=== PATIENT | female | born 1995 | race American Indian/Alaskan Native ===

== ENCOUNTER 2017-06-12 21:48 | Emergency (ER) | payer MEDICAID ==
[2017-06-12 22:19] VITALS: BP 120/59
[2017-06-12 22:48] LABS: Bacteria,Urine 4+ /HPF (Negative); Bilirubin,Urine NEG (Negative); Blood,Urine NEG (Negative); Calcium Oxalate Crystals,Urine 1+; Color,Urine Yellow (Yellow); Mucus,Urine 2+ /HPF; Protein,Urine <15 mg/dL mg/dL (Negative)
[2017-06-12 22:49] LABS: HCG Qualitative,Urine Negative (Negative)
--- NOTE | 2017-06-12 23:43 | XRay Report ---
FINAL REPORT EXAM: XR SPINE LUMBOSACRAL 2-3V HISTORY: lower back pain TECHNIQUE: Lumbar spine 3 views PRIORS: None. FINDINGS: Vertebral bodies demonstrate normal height and alignment. The disc spaces are within normal limits. There is no evidence of spondylolisthesis. Transverse and spinous processes are intact SI joints are unremarkable. IMPRESSION: Negative lumbar spine series
== END 2017-06-13 02:06 | disposition left against medical advice (07) ==
LOC: ED 21:48
DX: M54.9 Dorsalgia, unspecified (principal); Z53.21 Procedure and treatment not carried out due to patient leaving prior to being seen by health care provider
CPT/HCPCS: 72100; 81001; 81025

== ENCOUNTER 2018-03-23 12:24 | Emergency (ER) | payer MEDICAID ==
[2018-03-23 12:32] VITALS: BP 115/72
[2018-03-23] MEDS ORDERED: ZOFRAN ODT PO ONE (13:12)
--- NOTE | 2018-03-23 13:14 | Emergency Department Report ---
Vomiting/Diarrhea - HPI Chief Complaint: Abdominal Pain Stated Complaint: ABD PAIN/VOMITING Time Seen by Provider: 03/23/18 13:04 Duration: 1 week Severity: mild Nausea/Vomiting Severity: Mild Diarrhea Severity: None Pain Severity: None Symptoms: Yes Able to Tolerate Fluids, No Watery Diarrhea, No Bloody diarrhea, No Fever, No Recent Unusual Foods, No Recent Untreated Water, No Recent use of Antibiotics, No Family w/ Similar Symptoms, No Contacts w/ Similar Symptoms, No Rash, No Hematuria, No Recent URI Symptoms Other History: This is an 22-year-old [place] female who presents with nausea and vomiting for one week. Last cycle 01/25/2008, A0. Patient states she had mild pelvic cramping this morning which is now resolved. States she can keep liquids down. She is only vomiting after meals. She denies vaginal bleeding, frequency, urgency, dysuria, diarrhea, or vaginal discharge. ED Review of Systems ROS: Stated complaint: ABD PAIN/VOMITING Other details as noted in HPI Constitutional: denies: chills, fever Respiratory: denies: cough, shortness of breath, wheezing Cardiovascular: denies: chest pain, palpitations Gastrointestinal: nausea, vomiting. denies: abdominal pain, diarrhea Neurological: denies: headache, weakness, paresthesias Psychiatric: denies: anxiety, depression ED Past Medical Hx - Past Medical History Previous Medical History?: No - Surgical History Past Surgical History?: Yes Additional Surgical History: x1 - Social History Smoking Status: Never Smoker Substance Use Type: None - Medications Home Medications: Home Medications Medication Instructions Recorded Confirmed Last Taken Type Azithromycin [Zithromax TAB] 500 mg PO QDAY #4 tablet 10/27/14 Unknown Rx Nitrofurantoin Dickens/M-Cryst 100 mg PO Q12HR #14 capsule 10/27/14 Unknown Rx [Macrobid CAP] Phenazopyridine [Pyridium] 200 mg PO TID #6 tab 10/27/14 Unknown Rx Nitrofurantoin Monohyd/M-Cryst 100 mg PO BID #10 capsule 03/23/18 Unknown Rx [Macrobid 100 mg Capsule] Ondansetron [Zofran Odt] 4 mg PO Q8HR PRN #20 tab.rapdis 03/23/18 Unknown Rx 21/Iron Fu/Folic Acid 1 each PO DAILY #30 tablet 03/23/18 Unknown Rx [ Complete Caplet] Vomiting Diarrhea Exam - Exam General: Vital signs noted. No distress. Alert and acting appropriately. HEENT: Yes Pharyngeal Erythema (erythematous posterior pharynx, uvula midline), Yes Moist Mucous Membranes, No Pharyngeal Exudates, No Rhinorrhea, No Conjuctival Injection, No Frontal Tenderness, No Maxillary Tenderness Neck: No Adenopathy, No Rigidity Lungs: Yes Clear Lung Sounds, Yes Good Air Exchange, No Wheezes, No Stridor, No Cough, No Nasal Flaring, No Retractions, No Use of Accessory Muscles Heart exam: Regular: Yes, Murmur: No, Tachycardia: No Abdomen: Tenderness: No, Peritoneal Signs: No, Distention: No, Hyperactive Bowel sounds: No Skin exam: Rash: No, Edema: No, Normal turgor: Yes Neurologic: Alert and oriented, no deficits. Musculoskeletal: Unremarkable. ED Course Vital Signs 03/23/18 12:30 Temperature 98.2 F Pulse Rate 76 Respiratory 16 Rate Blood Pressure 115/72 O2 Sat by Pulse 100 Oximetry ED Medical Decision Making - Lab Data Lab Results 03/23/18 Range/Units 12:38 Urine Color Yellow (Yellow) Urine Turbidity Slightly-cloudy (Clear) Urine pH 6.0 (5.0-7.0) Ur Specific [place] 1.020 (1.003-1.030) Urine Protein <15 mg/dl (Negative) mg/dL Urine Glucose (UA) Neg (Negative) mg/dL Urine Ketones Tr (Negative) mg/dL Urine Blood Neg (Negative) Urine Nitrite Neg (Negative) Ur Reducing Substances Not Reportable Urine Bilirubin Neg (Negative) Urine Ictotest Not Reportable Urine Urobilinogen 2.0 (<2.0) mg/dL Ur Leukocyte Esterase Mod (Negative) Urine WBC (Auto) 15.0 H (0.0-6.0) /HPF Urine RBC (Auto) 3.0 (0.0-6.0) /HPF U Epithel Cells (Auto) 15.0 H (0-13.0) /HPF Urine Bacteria (Auto) 1+ (Negative) /HPF Urine Mucus 1+ /HPF Urine HCG, Qual Positive A (Negative) - Medical Decision Making Patient was examined by me. Vitals are normal and patient is in no acute distress. Obtained a urinalysis and urine hCG. Confirmed Start complete vitamin po daily x 30 days, 0 refills. Hyperemisis Start zofran ODT 4 mg po tid prn for nausea. Acute cystitis Start Macrobid 100 mg by mouth twice a day 5 days, 0 refills. Patient informed of results. Referral to [facility] for continued care. Patient discharged home in stable condition. Critical care attestation.: If time is entered above; I have spent that time in minutes in the direct care of this critically ill patient, excluding procedure time. ED Disposition Clinical Impression: Nausea and vomiting during , confirmed by positive urine test Acute cystitis during Qualifiers: Trimester: unspecified trimester Qualified Code(s): O23.10 - Infections of bladder in , unspecified trimester Disposition: TO HOME OR SELFCARE Is pt being admited?: No Does the pt Need Aspirin: No Condition: Stable Instructions: Hyperemesis Gravidarum (ED), (ED) Additional Instructions: Take vitamins daily. Complete full course of antibiotics as prescribed. Follow up with [facility]. Prescriptions: Nitrofurantoin Monohyd/M-Cryst [Macrobid 100 mg Capsule] 100 mg PO BID #10 capsule Ondansetron [Zofran Odt] 4 mg PO Q8HR PRN #20 tab.rapdis PRN Reason: Nausea And Vomiting 21/Iron Fu/Folic Acid [ Complete Caplet] 1 each PO DAILY #30 tablet Referrals: [facility] [Provider Group] - 3-5 Days [facility] [Provider Group] - 3-5 Days [facility] [Provider Group] - 3-5 Days Forms: Work/School Release Form(ED) Time of Disposition: 13:52
[2018-03-23 13:21] LABS: HCG Qualitative,Urine Positive (Negative)
[2018-03-23 13:27] LABS: Bacteria,Urine 1+ /HPF (Negative); Bilirubin,Urine NEG (Negative); Blood,Urine NEG (Negative); Color,Urine Yellow (Yellow); Mucus,Urine 1+ /HPF; Protein,Urine <15 mg/dL mg/dL (Negative)
== END 2018-03-23 14:12 | disposition home or self-care (01) ==
LOC: ED 12:24
DX: O26.891 Other specified pregnancy related conditions, first trimester (principal); O23.10 Infections of bladder in pregnancy, unspecified trimester; Z3A.01 Less than 8 weeks gestation of pregnancy
CPT/HCPCS: 81001; 81025; 99283; Q0162